=== PATIENT | male | born 1980 | race Caucasian/White ===

== ENCOUNTER 2019-10-03 20:49 | Emergency (ER) | payer OTHER, SELFPAY ==
[2019-10-03 21:00] VITALS: BP 144/91; PULSE 121; RESP 20; TEMP 36.7; O2SAT 98; BMI 27.8
--- NOTE | 2019-10-03 21:03 | HMH.EDUTC ---
[facility] [place] Disposition Clinical Impression: Possible exposure to STD Disposition: Home, Self-Care Condition on Discharge: Good Instructions: Chlamydia, Chlamydia: The Silent STD, Gonorrhea, DI for Gonorrhea Additional Instructions: NO sexual activity until test results back and negative or treatment if positive Make sure that you are practicing safe sexual activity Return if needed Follow up with Family doctor if no improvement or any worsening of symptoms Call back to the [facility] for your results or follow up with Family doctor Straight to ER If any life threatening symptoms Referrals: PCP,No [Primary Care Provider] - As needed Time of Disposition: 21:09 Medical Decision Making - Genaro Inquiry Pt receiving controlled substance: No Genaro was queried for this patient: No Vital Signs: 10/03/19 21:00 Temperature 98.0 F Temperature Source Temporal Artery Scan Pulse Rate [Right Brachial] 121 H Respiratory Rate 20 Blood Pressure [Right Arm] 144/91 H Blood Pressure Mean [Right Arm] 108 Blood Pressure Source [Right Arm] Automatic Cuff Blood Pressure Position [Right Arm] Sitting 02 Sat by Pulse Oximetry 98 Oxygen Delivery Method Room Air Medical Decision Narrative: Patient educated to make sure that he is practicing safe sex and that it would be 5-7 days before results back and needed to with hold from any sexual activity until negative results or treatment if positive patient verbalized under standing [facility] [place] HPI - General Stated complaint: WANT std TEST Time Seen by Provider: 10/03/19 21:03 Mode of Arrival: Ambulatory Source of Information: Patient Limitations: No Limitations Description of Symptoms (Recalled from Triage Doc. by RN): PATIENT REQUESTING TEST FOR STD. NO KNOWN EXPOSURE, DENIES ANY SYMPTOMS HEENT Symptoms (Recalled from RN notes): No Resp Symptoms (Recalled from RN notes): No Skin Symptoms (Recalled from RN notes): No MS Symptoms (Recalled from RN notes): No Functional Status (Recalled from RN notes): WNL - History of Present Illness Provider Complaint: Patient states that he wants to get STD test to check for Chlamydia and Gonorrhea State that he hasnt had any known exposure but not sure and not having any symptoms but has had unprotected sex and worried that he may have it and not know it so he came in to get checked - Related Data Allergies Allergy/AdvReac Type Severity Reaction Status Date / Time hydrocodone [From Lortab] AdvReac Unknown NA-NAUSEA Unverified 03/13/17 14:38 - Worker's Comp Is this a Worker's Comp case?: No [facility] History - Hepatitis A Screen Drug use history?: No High risk sexual behaviors?: No History of sexually transmitted infection?: No Currently employed?: No Childcare worker?: No Do you have indoor plumbing?: Yes Do you have electricity?: Yes Attestation statement:: This patient has been screened for Hepatitis A risk factors. I have reviewed the patient's past medical history: Yes - Social History Smoking Status: Current every day smoker Tobacco Type: cigarettes # Packs/Day (cigarettes): 1 Alcohol Intake: never Occupational Status: other ROS Obtained: Yes All systems reviewed & no additional complaints, Yes Systems reviewed as appropriate & no additional complaints - Eyes Eyes: Reports system reviewed and no additional complaints, except as docu - ENT Ears, Nose, Mouth, and Throat: Reports system reviewed and no additional complaints, except as docu - Cardiovascular Cardiovascular: Reports system reviewed and no additional complaints, except as docu - Respiratory Respiratory: Yes system reviewed and no additional complaints, except as docu - Gastrointestinal Gastrointestingal: Reports: system reviewed and no additional complaints, except as docu - Genitourinary Male Genitourinary: Reports system reviewed and no additional complaints, except as docu, Denies painful ejaculations, Denies penile discharge, Denies testicular pain Physical Exam -
[2019-10-03 21:12] VITALS: BP 144/91; PULSE 102; RESP 20; TEMP 36.7; O2SAT 98
[2019-10-07 06:42] LABS: Neisseria gonorrhoeae, NAA Negative (Negative)
== END 2019-10-03 21:15 | disposition home or self-care (01) ==
PROVIDERS: Emergency Provider Nurse Practitioner
DX: Z20.2 Contact with and (suspected) exposure to infections with a predominantly sexual mode of transmission (principal); F17.210 Nicotine dependence, cigarettes, uncomplicated; Z88.5 Allergy status to narcotic agent
CPT/HCPCS: 87491; 87591; 99201

== ENCOUNTER 2019-10-22 14:19 | Emergency (ER) | payer OTHER, SELFPAY ==
--- NOTE | 2019-10-22 14:45 | XR_ITS ---
PROCEDURE: XR HIP LT 2-3V W/PELVIS CLINICAL INDICATION: Left hip pain and swelling COMPARISON: No exams were available for comparison FINDINGS: No fracture or dislocation is evident. No lytic or blastic change. Unremarkable soft tissues. There is mild bilateral hip osteoarthrosis with asymmetric joint space narrowing. The visualized soft tissue structures are unremarkable. A small metallic clips are seen in the scrotum. IMPRESSION: No acute findings. Mild right/left hip arthrosis. Dictated by: Jason Hare 10/22/2019 15:42 Electronically signed by Jason Hare in [place] 10/22/2019 15:42
[2019-10-22 14:53] VITALS: BP 128/79; PULSE 64; RESP 21; TEMP 36.6; O2SAT 100; BMI 25.5
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
[2019-10-22 15:45] VITALS: BP 128/79; PULSE 64; RESP 21; TEMP 36.6; O2SAT 100
== END 2019-10-22 15:52 | disposition home or self-care (01) ==
PROVIDERS: Emergency Provider Nurse Practitioner
DX: S30.810A Abrasion of lower back and pelvis, initial encounter (principal); W22.8XXA Striking against or struck by other objects, initial encounter; Y92.89 Other specified places as the place of occurrence of the external cause; Z88.5 Allergy status to narcotic agent; F17.210 Nicotine dependence, cigarettes, uncomplicated
CPT/HCPCS: 73502; 99201